=== PATIENT | male | born 1985 ===

== ENCOUNTER 2021-02-20 16:19 | Emergency (ER) | payer MEDICAID ==
[~2021-02-20] VITALS: Ht 177.8 cm; Wt 77.1 kg
[2021-02-20 16:31] VITALS: BP 127/74
== END 2021-02-20 16:53 | disposition home or self-care (01) ==
LOC: ER 16:19
DX: M79.10 Myalgia, unspecified site (principal); V89.2XXA Person injured in unspecified motor-vehicle accident, traffic, initial encounter; Y93.89 Activity, other specified; Y92.89 Other specified places as the place of occurrence of the external cause; Y99.8 Other external cause status